=== PATIENT | male | born 1965 | race Two or more races ===

== ENCOUNTER 2024-01-03 06:53 | Day surgery (SDC) | payer OTHER ==
[~2024-01-03] VITALS: Ht 166.4 cm; Wt 83.9 kg
[~2024-01-03 06:53] MED LIST: CIPRO500 MG PO; COZAAR25 MG PO; MUCINEX DM ER1 EACH PO
[2024-01-03] MEDS ORDERED: CEFAZOLIN SODIUM 1,000 MG VIAL ONE (11:25)
[2024-01-03] MEDS ORDERED: BUPIVACAINE HCL/Mpf 0.5% 10ML VIAL ONE (13:18)
== END 2024-01-03 15:50 | disposition home or self-care (01) ==
LOC: CIR.AMB 06:53
PROVIDERS: ATTEND Orthopaedic Surgery Hand Surgery
DX: G56.01 Carpal tunnel syndrome, right upper limb (principal); I10 Essential (primary) hypertension